=== PATIENT | male | born 1950 | race African-American/Black ===

== ENCOUNTER 2016-11-10 09:24 | Inpatient (IN) | payer OTHER ==
[~2016-11-10] VITALS: Ht 167.6 cm; Wt 52.2 kg
--- NOTE | ~2016-11-10 | 2DMMODE ---
[facility] [address] [facility] [place] [address] 2 D/M-MODE ECHOCARDIOGRAM Name: ADDY JONES Room #: 453-P [facility] IN ..#: [id number] Admission: 11/10/16 Attend Phys: Antonio Norton, Discharge: Date of : 46 Date of Service: 11/11/16 1227 Report #: [id number] THIS REPORT FOR: //name// APPROVED REPORT Study performed: 11/11/2016 11:05:21 EXAM: Comprehensive 2D, Doppler, and color-flow Echocardiogram Patient Location: Bedside Room #: [facility] Status: routine Other Information Study Quality: Adequate Indications COPD Dyspnea 2D Dimensions LVEF(%): 79.04 (>50%) IVSd: 9.38 (7-11mm) LVOT Diam: 21.49 (18-24mm) LVDd: 39.22 mm PWd: 9.81 (7-11mm) Ascending Ao: 36.94 (22-36mm) LVDs: 20.76 (25-40mm) Aortic Root: 31.04 mm IVC: 11.00 mm Mora's LVEF: 79.04 % Volumes Left Atrial Volume (Systole) Single Plane 4CH: 26.45 mL Single Plane 2CH: 30.89 mL LA ESV Index: 20.00 mL/m2 Aortic Valve AoV Peak Jass.: 1.24 m/s AO Peak Gr.: 6.16 mmHg LVOT Max P.37 mmHg LVOT Max V: 1.04 m/s SEKOU Vmax: 3.05 cm2 Pulmonary Valve PV Peak Jass.: 0.88 m/s PV Peak Gr.: 3.10 mmHg Tricuspid Valve TR Peak Jass.: 2.53 m/s RAP Estimate: 5.00 mmHg TR Peak Gr.: 25.[address] [facility] [place] [address] 2 D/M-MODE ECHOCARDIOGRAM Name: KARENADDY Jatinder Room #: 453-P [facility] IN ..#: [id number] Admission: 11/10/16 Attend Phys: Antonio Norton, Discharge: Date of : 46 Date of Service: 11/11/16 1227 Report #: [id number] Pressure: 31.00 mmHg Left Ventricle The left ventricle is normal size. There is normal left ventricular wall thickness. Left ventricular systolic function is hyperdynamic. LVEF is >70%. This study is not technically sufficient to allow evaluation of the LV diastolic function. Right Ventricle The right ventricle is normal size. The right ventricular systolic function is normal. Atria The left atrium size is normal. The right atrium size is normal. Aortic Valve The aortic valve is normal in structure. No aortic regurgitation is present. There is no aortic valvular stenosis. Mitral Valve The mitral valve is normal in structure. There is no mitral valve regurgitation noted. No evidence of mitral valve stenosis. Tricuspid Valve The tricuspid valve is normal in structure. There is trace tricuspid regurgitation. The right atrial pressure is estimated at 5 mmHg. There is no pulmonary hypertension. Pulmonic Valve The pulmonary valve is normal in structure. Trace pulmonic regurgitation. Great Vessels The aortic root is normal in size. IVC is normal in size and collapses >50% with inspiration. Pericardium Mild anterior pericardial effusion. <Conclusion> The left ventricle is normal size. LVEF is >70%. The aortic valve is normal in structure. The mitral valve is normal in structure. The tricuspid [place] [address] 2 D/M-MODE ECHOCARDIOGRAM Name: ADDY JONES Room #: 453-P [facility] IN ..#: [id number] Admission: 11/10/16 Attend Phys: Antonio Norton, Discharge: Date of : 46 Date of Service: 11/11/167 Report #: [id number] The pulmonary valve is normal in structure. Mild hemodynamically not significant anterior pericardial effusion. <ELECTRONICALLY SIGNED> By: Trenton Butterfield MD 11/11/16 1227 1227 1227 Trenton Butterfield MD /INF
--- NOTE | ~2016-11-10 | CNG ---
[facility] [address] [place] [address] CYTO-NONGYN REPORT PROCEDURE Name: ADDY SOL Room #: 453-P [facility] IN M.R.#: [id number] Admission: 11/10/16 Date of : 46 Discharge: 11/14/16 Report #: [id number] Path Case #: [id number] CYTOPATHOLOGY REPORT COLLECTION DATE: 11/13/2016 RECEIVED DATE: 11/13/2016 SUBMITTING PHYS: Dr. Barrett Márquez OTHER PHYS: Dr. Antonio Norton CLINICAL HISTORY: COPD Exacerbation SPECIMEN(S) RECEIVED: A.Sputum * * * * * * * * * * * * FINAL DIAGNOSIS: A. Sputum: - No malignant cells identified. Squamous epithelial cells, bronchial epithelial cells, macrophages and debris present. PATHOLOGIST: Leslie Fong M.D. REPORT ELECTRONICALLY SIGNED BY: Leslie Fong M.D. DATE/TIME: 11/14/2016 11:21 * * * * * * * * * * * * GROSS PATHOLOGY: A. Sputum: The specimen is submitted unfixed, labeled "Addy Sol". Received by the Cytology Department is one mL of cloudy colorless fluid. One ThinPrep slide was prepared. (mm 11.13.2016) DATABASE SPECIALIST(S): DAVIN Rizvi(ASCP)IAC INITIAL CPT CODE(S): A; 69876 Professional services performed by [facility] at [facility] [address] , [place] [address] Technical services performed by [facility] at [address] [place] [address]., [address], [place] [address]. [facility] [address] [place] [address], [facility] [address] [place] [address] PHONE: [phone] DIRECTOR: Og Peng M.D. [facility] [address] [place] [address] CYTO-NONGYN REPORT PROCEDURE Name: ADDY SOL Room #: 453-P [facility] IN ..#: [id number] Admission: 11/10/16 Date of : 46 Discharge: 11/14/16 Report #: [id number] Path Case #: [id number] * * * END OF REPORT * * *
--- NOTE | ~2016-11-10 | HC ---
[facility] [place] [address] CONSULTATION Name: ADDY JONES Room #: 453-P ADM IN M.R.#: [id number] Admission: 11/10/16 Attend Phys: Antonio Norton DO Discharge: Date of : 46 Report #: [id number] THIS REPORT FOR: //name// CC: DYAN physician/PCP Antonio Tinoco Pulmonary DATE OF SERVICE: 11/10/2016 REASON FOR CONSULTATION: Respiratory failure. IMPRESSION: 1. Acute on chronic hypoxic respiratory failure. 2. Exacerbation of chronic obstructive pulmonary disease. 3. Hypercapnic respiratory failure. 4. Left basilar atelectasis infiltrate, possible pneumonia. 5. Hyperglycemia. 6. Normocytic anemia, hemoglobin 12.8, MCV 81.1. 7. Thrombocytopenia, platelets 114. PLAN: IV corticosteroids, IV antibiotics, aerosol therapy. We will continue BiPAP. We will check an echo in a.m., because of peripheral edema we will do venous Dopplers today and check an echocardiogram in the a.m., may have pulmonary hypertension. We will do DVT and ulcer prophylaxis. HISTORY OF PRESENT ILLNESS: A very pleasant 66-year-old relates urgent care, was given I believe azithromycin and prednisone, but continued to feel progressively short of breath. Comes in now. Denied chest pain. Positive shortness breath, cough, and came in by EMS. He denied history of heart disease, DVT or PE. PAST MEDICAL HISTORY: HOME MEDICATIONS: Included Advair 230, Spiriva, prednisone, albuterol. ALLERGIES: None known. SOCIAL HISTORY: Quit tobacco a year ago. Negative ETOH or drugs of abuse. FAMILY HISTORY: Negative for early lung disease. PAST SURGICAL HISTORY: Hernia in 1995. REVIEW OF SYSTEMS: Positive shortness of breath, cough, dyspnea. No hemoptysis, hematemesis or hematuria. No difficulty urinating, no history of ulcer. Positive history of edema, has had CT at [facility] before and sees . [facility] [place] [address] [place] [address] CONSULTATION Name: ADDY JONES Jatinder Room #: 453-P [facility] IN [facility]#: [id number] Admission: 11/10/16 Attend Phys: Antonio Norton DO Discharge: Date of : 46 Report #: [id number] PHYSICAL EXAMINATION: VITAL SIGNS: Pulse 86, respirations 20, BP 123/82. Currently on BiPAP. LUNGS: Wheeze, decreased breath sounds bilaterally. HEART: Regular. ABDOMEN: Bowel sounds present. EXTREMITIES: Showed positive edema bilateral, moves all extremities. NEUROLOGIC: Alert and oriented. LABORATORY DATA: EKG showed left atrial enlargement, sinus tachycardia. LABORATORY DATA: pH 7.35, pCO2 of 47, pO2 of 99 on BiPAP, carboxyhemoglobin 2.2. White count 4.6, hemoglobin 12.8, platelets 114. BUN 16, creatinine 1. Chest x-ray showed hyperinflation scarring. Repeat ABG on IPAP at 12, EPAP at 6, rate of 12, 7.35, pCO2 of 46, pO2 507. Lactate 0.67. We will follow closely with you. By: [id number] Barrett Márquez MD /nt
--- NOTE | ~2016-11-10 | EKG ---
[address] [place] [address] ELECTROCARDIOGRAM REPORT Name: ADDY JONES Room #: 453-P [facility] IN .R.#: [id number] Admission: 11/10/16 Attend Phys: Antonio Norton DO Discharge: Date of : 46 Report #: [id number] THIS REPORT FOR: //name// [facility] ED Test Date: 2016-11-10 Test Time: 09:29:50 Pat Name: ADDY JONES Department: Room: 170 Gender: M Bun Panner: Jatinder WATERS : 1950 Requested By: Mando Duffy Order Number: [id number] MD: Joel Shields Measurements Intervals [place] Rate: 104 P: 80 WI: 180 QRS: 72 QRSD: 80 T: 68 QT: 341 QTc: 449 Interpretive Statements Sinus tachycardia Borderline low voltage, extremity leads No previous ECG available for comparison Electronically Signed On 11-11-2016 7:53:32 CDT by Joel Shields [email or web address] <ELECTRONICALLY SIGNED> By: Joel Shields MD, LOCATED WITHIN [facility] 11/11/16 0753 0929 8 Joel Shields MD, FACC /EPI
[2016-11-10 09:24] VITALS: BP 134/94
[2016-11-10] MEDS ORDERED: SPIRIVA INH (09:34)
[2016-11-10] MEDS ORDERED: PREDNISONE 10 M10 MG PO (09:34)
[2016-11-10] MEDS ORDERED: ACCUNEB SO1.25 MG/1 INH (09:34)
[2016-11-10] MEDS ORDERED: ADVAIR HFA 230M12 GM INH (09:34)
[2016-11-10 09:39] LABS: ABSOLUTE NEUTROPHILS 2.5 thou/uL (1.4-8.2); BASOPHILS 0.9 % (0.0-2.0); EOSINOPHILS 0.8 % (0.0-3.0); HEMATOCRIT 38.6 % (42.0-52.0); HEMOGLOBIN 12.8 gm/dL (14.0-18.0); MCH 26.8 pg (26.0-34.0); MCHC 33.1 g/dL (28.0-37.0); MCV 81.1 fL (80.0-100.0); MONOCYTES 9.4 % (1.0-8.0); PLATELET COUNT 114 thou/uL (150-400); POLYS 53.9 % (36.0-66.0); RBC 4.76 mil/uL (4.50-6.00); RDW 15.9 % (10.5-14.5); WBC 4.6 thou/uL (4.0-11.0)
[2016-11-10 09:42] LABS: ABG SAMPLE TYPE ARTERIAL; BE(vivo) -0.4 mmol/L (-2 to +3); HCO3 25.6 mmol/L (22.0-26.0); LACTATE 1.15 mmol/L (0.5-2.0); O2(CT) 18.1 mL/dL (15.0-23.0); O2Hb 94.6 % (92.0-98.0); PCO2 47.1 mmHg (35.0-45.0); PO2 99.2 mmHg (80.0-100.0); STICK SITE R.RADIAL; pH 7.353 (7.360-7.450); sO2 97.2 % (92.0-98.0)
[2016-11-10 09:43] LABS: Pressure Support 10 cm H20
[2016-11-10 09:46] LABS: MANUAL DIFF NO
[2016-11-10 09:47] LABS: ANION GAP 7 mmol/L (7-16); BUN 16 mg/dL (7-18); CALCIUM 8.8 mg/dL (8.5-10.1); CHLORIDE 105 mmol/L (98-107); CO2 30 mmol/L (21-32); GLUCOSE 126 mg/dL (74-106); POTASSIUM 4.1 mmol/L (3.5-5.1); SODIUM 142 mmol/L (136-145)
[2016-11-10 09:54] LABS: ALBUMIN 3.5 g/dL (3.4-5.0); ALKALINE PHOSPHATASE 66 U/L (46-116); SGOT 21 U/L (15-37); SGPT 19 U/L (30-65); TOTAL BILIRUBIN 0.4 mg/dL (<0.1-1.0); TOTAL PROTEIN 6.9 g/dL (6.4-8.2); TROPONIN-I < 0.04 ng/mL (<0.04-0.07)
[2016-11-10 10:30] LABS: ABG SAMPLE TYPE ARTERIAL; BE(vivo) -0.8 mmol/L (-2 to +3); HCO3 25.1 mmol/L (22.0-26.0); LACTATE 0.67 mmol/L (0.5-2.0); O2(CT) 18.6 mL/dL (15.0-23.0); O2Hb 97.9 % (92.0-98.0); PCO2 46.4 mmHg (35.0-45.0); PO2 507.6 mmHg (80.0-100.0); pH 7.351 (7.360-7.450); sO2 99.9 % (92.0-98.0); tCO2 26.5 mmol/L (24.0-30.0)
[2016-11-10 10:31] LABS: Pressure Support 12 cm H20; STICK SITE R.RADIAL
[2016-11-10 10:57] VITALS: BP 122/83
[2016-11-10 11:45] VITALS: BP 123/82
[2016-11-10 12:37] LABS: APTT 24.6 Seconds (24.5-32.8); INR 1.1; PROTIME 11.5 Seconds (9.3-11.4)
[2016-11-10 15:43] VITALS: BP 133/90
[2016-11-10 19:03] VITALS: BP 147/99
[2016-11-10 23:57] VITALS: BP 123/83
[2016-11-11 03:32] VITALS: BP 111/71
[2016-11-11 05:40] LABS: HEMATOCRIT 36.4 % (42.0-52.0); HEMOGLOBIN 12.2 gm/dL (14.0-18.0); MCHC 33.5 g/dL (28.0-37.0); MCV 80.6 fL (80.0-100.0); PLATELET COUNT 113 thou/uL (150-400); RBC 4.52 mil/uL (4.50-6.00); WBC 4.5 thou/uL (4.0-11.0)
[2016-11-11 05:54] LABS: ALBUMIN 3.2 g/dL (3.4-5.0); CALCIUM 8.7 mg/dL (8.5-10.1); CREATININE 0.9 mg/dL (0.7-1.3); POTASSIUM 4.4 mmol/L (3.5-5.1); TOTAL BILIRUBIN 0.4 mg/dL (<0.1-1.0); TOTAL PROTEIN 6.2 g/dL (6.4-8.2)
[2016-11-11 06:03] LABS: MANUAL DIFF YES
[2016-11-11 07:46] LABS: TOTAL CELL COUNT 100
[2016-11-11 07:47] LABS: ANISOCYTOSIS 1+; POIKILOCYTOSIS SLIGHT
[2016-11-11 08:45] VITALS: BP 111/73
[2016-11-11 08:59] LABS: ABG SAMPLE TYPE ARTERIAL; BE(vivo) 0.3 mmol/L (-2 to +3); HCO3 24.1 mmol/L (22.0-26.0); LACTATE 1.56 mmol/L (0.5-2.0); O2(CT) 14.2 mL/dL (15.0-23.0); O2Hb 94.6 % (92.0-98.0); PCO2 36.2 mmHg (35.0-45.0); PO2 81.2 mmHg (80.0-100.0); STICK SITE L.RADIAL; pH 7.442 (7.360-7.450); sO2 96.4 % (92.0-98.0); tCO2 25.3 mmol/L (24.0-30.0)
[2016-11-11 11:34] VITALS: BP 143/86
[2016-11-11 15:55] VITALS: BP 122/74
[2016-11-11 19:24] VITALS: BP 110/73
[2016-11-12 03:25] VITALS: BP 125/88
[2016-11-12 06:34] LABS: HEMATOCRIT 35.9 % (42.0-52.0); HEMOGLOBIN 12.1 gm/dL (14.0-18.0); MCHC 33.8 g/dL (28.0-37.0); MCV 80.1 fL (80.0-100.0); PLATELET COUNT 122 thou/uL (150-400); RBC 4.49 mil/uL (4.50-6.00); RDW 15.8 % (10.5-14.5); WBC 5.4 thou/uL (4.0-11.0)
[2016-11-12 06:46] LABS: MANUAL DIFF YES
[2016-11-12 07:44] VITALS: BP 124/75
[2016-11-12 07:57] LABS: TOTAL CELL COUNT 100
[2016-11-12 07:58] LABS: LARGE PLATELETS FEW
[2016-11-12 11:58] VITALS: BP 123/82
[2016-11-12 16:33] VITALS: BP 130/86
[2016-11-12 19:30] VITALS: BP 118/80
[2016-11-13 05:34] VITALS: BP 129/90
[2016-11-13 06:08] LABS: HEMATOCRIT 37.3 % (42.0-52.0); HEMOGLOBIN 12.2 gm/dL (14.0-18.0); MCH 26.5 pg (26.0-34.0); MCHC 32.8 g/dL (28.0-37.0); PLATELET COUNT 133 thou/uL (150-400); RBC 4.61 mil/uL (4.50-6.00); RDW 16.1 % (10.5-14.5); WBC 5.6 thou/uL (4.0-11.0)
[2016-11-13 06:12] LABS: CALCIUM 8.5 mg/dL (8.5-10.1); CREATININE 0.8 mg/dL (0.7-1.3); POTASSIUM 4.4 mmol/L (3.5-5.1)
[2016-11-13 06:21] LABS: MANUAL DIFF YES
[2016-11-13 07:22] VITALS: BP 121/78
[2016-11-13 07:33] LABS: ABSOLUTE NEUTROPHILS 5.3 thou/uL (1.4-8.2); ANISOCYTOSIS 1+; POIKILOCYTOSIS SLIGHT; TOTAL CELL COUNT 100
[2016-11-13 11:16] VITALS: BP 106/78
[2016-11-13 15:06] VITALS: BP 111/79
[2016-11-13 19:10] VITALS: BP 121/77
[2016-11-14 03:00] VITALS: BP 101/77
[2016-11-14 08:14] VITALS: BP 120/78
[2016-11-14] MEDS ORDERED: CEFUROXIME250 MG PO (08:50)
[2016-11-14] MEDS ORDERED: FLOMAX0.4 MG PO (08:51)
[2016-11-14] MEDS ORDERED: AZITHROMYCIN 2250 MG PO (08:51)
[2016-11-14 09:35] VITALS: BP 120/78
== END 2016-11-14 10:33 | disposition home health service (06) | DRG 871 ==
LOC: ER 09:24 → EROBS 10:34 → 4W 10:34
PROVIDERS: Family Medicine; Internal Medicine Pulmonary Disease; Physician Assistant
PROC: 5A09357 Assistance with Respiratory Ventilation, Less than 24 Consecutive Hours, Continuous Positive Airway Pressure (ICD-10-PCS; principal; 2016-11-10)
DX: A41.9 Sepsis, unspecified organism (principal); J96.21 Acute and chronic respiratory failure with hypoxia; J96.22 Acute and chronic respiratory failure with hypercapnia; J44.1 Chronic obstructive pulmonary disease with (acute) exacerbation; J98.11 Atelectasis; R73.9 Hyperglycemia, unspecified; D64.9 Anemia, unspecified; D69.6 Thrombocytopenia, unspecified; Z87.891 Personal history of nicotine dependence
CPT/HCPCS: 10045

== ENCOUNTER → 2016-11-21 | Outpatient (CLI) | payer OTHER ==
[~2016-11-21] MED LIST: ACCUNEB SO1.25 MG/1 INH; ADVAIR HFA 230M12 GM INH; AZITHROMYCIN 2250 MG PO; CEFUROXIME250 MG PO; FLOMAX0.4 MG PO; PREDNISONE 10 M10 MG PO; PREDNISONE 20 M20 MG PO; PROAIR HFA8.5 GM INH; SPIRIVA INH
== END ==
LOC: RAD 15:31
DX: R06.00 Dyspnea, unspecified (principal)

== ENCOUNTER 2016-11-25 07:20 | Emergency (ER) | payer OTHER ==
[~2016-11-25] VITALS: Ht 167.6 cm; Wt 52.6 kg
--- NOTE | ~2016-11-25 | EKG ---
[place] [address] [place] [address] ELECTROCARDIOGRAM REPORT Name: ADDY JONES Room #: [facility]#: [id number] Admission: 11/25/16 Attend Phys: Discharge: Date of : 46 Report #: [id number] THIS REPORT FOR: //name// [facility] ED Test Date: 2016-11-25 Test Time: 07:57:09 Pat Name: ADDY SAURABHXIANG Department: Room: Gender: Jig Bore Operator: JOSUÉ : 1950 Requested By: Carolyn Cook Order Number: [id number] MD: Joel Shields Measurements Intervals [place] Rate: 92 P: 82 CT: 157 QRS: 63 QRSD: 92 T: 57 QT: 347 QTc: 430 Interpretive Statements Sinus rhythm Ventricular premature complex Borderline low voltage, extremity leads Compared to ECG 11/10/2016 09:29:50 Ventricular premature complex(es) now present Sinus tachycardia no longer present Electronically Signed On 11-25-2016 8:49:48 CDT by Joel Shields [email or web address] <ELECTRONICALLY SIGNED> By: Joel Shields MD, [facility] 11/25/16 0849 0757 075 Joel Shields MD, [facility] /EPI
[~2016-11-25 07:20] MED LIST changes: -PREDNISONE 20 M20 MG PO; -PROAIR HFA8.5 GM INH
[2016-11-25 07:58] LABS: ABSOLUTE NEUTROPHILS 2.3 thou/uL (1.4-8.2); EOSINOPHILS 1.4 % (0.0-3.0); HEMATOCRIT 36.1 % (42.0-52.0); LYMPHOCYTES 32.5 % (24.0-44.0); MCH 26.8 pg (26.0-34.0); MCHC 33.4 g/dL (28.0-37.0); MCV 80.1 fL (80.0-100.0); MONOCYTES 9.2 % (1.0-8.0); PLATELET COUNT 165 thou/uL (150-400); POLYS 55.9 % (36.0-66.0); RDW 16.2 % (10.5-14.5); WBC 4.1 thou/uL (4.0-11.0)
[2016-11-25 08:04] LABS: ABG SAMPLE TYPE ARTERIAL; BE(vivo) 1.7 mmol/L (-2 to +3); HCO3 27.2 mmol/L (22.0-26.0); LACTATE 1.29 mmol/L (0.5-2.0); O2(CT) 16.1 mL/dL (15.0-23.0); PCO2 45.8 mmHg (35.0-45.0); PO2 56.4 mmHg (80.0-100.0); pH 7.391 (7.360-7.450); tCO2 28.6 mmol/L (24.0-30.0)
[2016-11-25 08:05] LABS: STICK SITE R.RADIAL
[2016-11-25 08:05] LABS: CALCIUM 8.5 mg/dL (8.5-10.1); CREATININE 0.8 mg/dL (0.7-1.3); POTASSIUM 3.5 mmol/L (3.5-5.1)
[2016-11-25 08:09] LABS: MANUAL DIFF NO
[2016-11-25] MEDS ORDERED: PREDNISONE 20 M20 MG PO (08:37)
[2016-11-25] MEDS ORDERED: PROAIR HFA8.5 GM INH (08:38)
== END 2016-11-25 08:38 | disposition home or self-care (01) ==
LOC: ER 07:20
PROVIDERS: Emergency Medicine
DX: J44.1 Chronic obstructive pulmonary disease with (acute) exacerbation (principal); Z98.890 Other specified postprocedural states; Z87.891 Personal history of nicotine dependence